=== PATIENT | female | born 1990 | race African-American/Black ===

== ENCOUNTER 2016-12-27 13:32 | Emergency (ER) | payer OTHER ==
[~2016-12-27] VITALS: Ht 160 cm; Wt 88.9 kg
[~2016-12-27 13:32] MED LIST: CYCLOBENZAPRINE10 MG ORAL; IBUPROFEN600 MG ORAL; NKM; NORCO 5-325 TA1 EACH ORAL; ZOFRAN ODT4 MG ORAL
[2016-12-27 14:09] VITALS: BP 109/74
[2016-12-27] MEDS ORDERED: Morphine Sulfate 4mg/ml Inj IVP ONE ×2 (14:30→18:30)
[2016-12-27 15:44] LABS: BASOPHILS % (AUTO) 1.4 % (0.0-2.0); EOSINOPHILS % (AUTO) 1.2 % (0.0-3.0); LYMPHOCYTES % (AUTO) 35.3 % (20.0-45.0); MEAN CORPUSCULAR HEMOGLOBIN 31.6 PG (27.0-31.0); MEAN CORPUSCULAR HGB CONC 35.3 G/DL (32.0-36.0); MEAN CORPUSCULAR VOLUME 89 FL (80-99); MEAN PLATELET VOLUME 6.2 FL (6.5-10.1); MONOCYTES % (AUTO) 4.4 % (1.0-10.0); NEUTROPHILS % (AUTO) 57.7 % (45.0-75.0); PLATELET COUNT 243 K/UL (150-450); RED BLOOD COUNT 4.34 M/UL (4.20-5.40); RED CELL DISTRIBUTION WIDTH 11.9 % (11.6-14.8); WHITE BLOOD COUNT 7.4 K/UL (4.8-10.8)
[2016-12-27 15:56] LABS: ALANINE AMINOTRANSFERASE 24 U/L (3-33); ALBUMIN/GLOBULIN RATIO 1.2 (1.0-2.7); ANION GAP 15 (5-15); ASPARTATE AMINO TRANSFERASE 19 U/L (5-40); CARBON DIOXIDE 25 mEQ/L (20-30); CHLORIDE 97 mEQ/L (98-107); CREATININE 0.6 mg/dL (0.5-0.9); GLOMERULAR FILTRATION RATE > 60 mL/min (>60); HEMOLYSIS 16; LIPASE 22 U/L (< 60); SODIUM 137 mEQ/L (135-145); TOTAL PROTEIN 7.1 g/dL (6.6-8.7)
[2016-12-27 16:06] VITALS: BP 110/73
[2016-12-27 16:57] LABS: APPEARANCE,URINE CLEAR; KETONES,URINE NEGATIVE (NEGATIVE); LEUKOCYTE ESTERASE ,URINE 3+ (NEGATIVE); NITRITE,URINE NEGATIVE (NEGATIVE); PH,URINE 7 (4.5-8.0); PROTEIN,URINE 2+ (NEGATIVE); UROBILINOGEN,URINE NORMAL MG/DL (0.0-1.0)
[2016-12-27 17:10] LABS: BACTERIA,URINE FEW /HPF; SQUAMOUS EPITHELIAL CELL,UR FEW /LPF (NONE/OCC)
[2016-12-27] MEDS ORDERED: Ketorolac 30mg Inj IV ONE (17:30)
[2016-12-27] MEDS ORDERED: KEFLEX500 MG ORAL (18:30)
[2016-12-27] MEDS ORDERED: ACETAMINOPHEN-1 EAC1 ORAL (18:30)
[2016-12-27] MEDS ORDERED: CYCLOBENZAPRINE10 MG ORAL (18:30)
[2016-12-27 18:57] VITALS: BP 100/57
--- NOTE | 2016-12-27 22:53 | Emergency Room Report ---
History of Present Illness General Chief Complaint: Back Pain-No Injury Source: Patient Present Illness HPI 26-year-old female presents ED complaining of left-sided back pain x1 day. States pain started yesterday has gotten progressively worse. Cramping sensation in the left upper back, 10 out of 10. Nonradiating. No other aggravating relieving factors. Denies trauma. Denies dysuria or hematuria. Denies fevers chills. Denies nausea or vomiting. Denies any other associated symptoms Allergies: Coded Allergies: No Known Allergies (Verified Allergy, Unknown, 09/22/09) Patient History Past Medical History: none Past Surgical History: none Pertinent Family History: none Social History: Denies: alcohol use, drug use, smoking Last Menstrual Period: last week Now: No Immunizations: UTD Reviewed Nursing Documentation: PMH: Agreed, PSxH: Agreed Nursing Documentation-PMH Past Medical History: No Stated History Review of Systems All Other Systems: negative except mentioned in HPI Physical Exam Vital Signs Date Time Temp Pulse Resp B/P Pulse Ox O2 Delivery O2 Flow Rate FiO2 12/27/16 13:58 98.1 90 18 109/74 98 Room Air Sp02 EP Interpretation: reviewed, normal General Appearance: no apparent distress, alert, GCS 15, non-toxic Head: normocephalic Eyes: bilateral eye PERRL, bilateral eye normal inspection ENT: normal ENT inspection Neck: normal inspection Respiratory: chest non-tender, lungs clear, normal breath sounds, speaking full sentences Cardiovascular #1: regular rate, rhythm, no edema Gastrointestinal: normal bowel sounds, non tender, soft, non-distended, no guarding, no rebound Rectal: deferred Genitourinary: CVA tenderness (L) Musculoskeletal: back normal, gait/station normal, normal range of motion, non- tender Neurologic: alert, oriented x3, responsive, motor strength/tone normal, sensory intact, speech normal Psychiatric: normal inspection Skin: normal inspection Lymphatic: normal inspection Medical Decision Making Diagnostic Impression: Primary Impression: Pyelonephritis Additional Impression: Back sprain ER Course Hospital Course 26-year-old F presents to ED with L sided flank pain Differential diagnosis includes- pyelonephritis, kidney stone, back pain Clinical course Patient placed on stretcher. After initial history and physical I ordered labs , IV fluids, pain medications and CT scan Labs - no leukocytosis, electrolytes ok, LFTs normal, UA + bacteria, some blood CT scan shows no acute pathology No evidence of kidney stone. Likely pyelonephritis. On reassessment pain improved I feel this is a highly complex case requiring extensive working including EKG/ Rhythm strip, Xray/CT/US, Blood/urine lab work, repeat exams while in ED, and administration of strong opiates/narcotics for pain control, admission to hospital or close patient follow up. Diagnosis - pyelonephritis, back pain Stable and discharged to home with Rx Keflex, Tylenol #3, flexeril. Followup with PMD. Return to ED if symptoms recur or worsen Labs Test 12/27/16 15:00 12/27/16 15:30 White Blood Count 7.4 K/UL (4.8-10.8) Red Blood Count 4.34 M/UL (4.20-5.40) Hemoglobin 13.7 G/DL (12.0-16.0) Hematocrit 38.8 % (37.0-47.0) Mean Corpuscular Volume 89 FL (80-99) Mean Corpuscular Hemoglobin 31.6 PG (27.0-31.0) Mean Corpuscular Hemoglobin Concent 35.3 G/DL (32.0-36.0) Red Cell Distribution Width 11.9 % (11.6-14.8) Platelet Count 243 K/UL (150-450) Mean Platelet Volume 6.2 FL (6.5-10.1) Neutrophils (%) (Auto) 57.7 % (45.0-75.0) Lymphocytes (%) (Auto) 35.3 % (20.0-45.0) Monocytes (%) (Auto) 4.4 % (1.0-10.0) Eosinophils (%) (Auto) 1.2 % (0.0-3.0) Basophils (%) (Auto) 1.4 % (0.0-2.0) Sodium Level 137 mEQ/L (135-145) Potassium Level 4.0 mEQ/L (3.4-4.9) Chloride Level 97 mEQ/L (98-107) Carbon Dioxide Level 25 mEQ/L (20-30) Anion Gap 15 (5-15) Blood Urea Nitrogen 7 mg/dL (7-23) Creatinine 0.6 mg/dL (0.5-0.9) Estimat Glomerular Filtration Rate > 60 mL/min (>60) Glucose Level 84 mg/dL (74-106) Calcium Level 9.0 mg/dL (8.6-10.2) Total Bilirubin 0.5 mg/dL (0.0-1.2) Aspartate Amino Transf (AST/SGOT) 19 U/L (5-40) Alanine Aminotransferase (ALT/SGPT) 24 U/L (3-33) Alkaline Phosphatase 58 U/L (35-104) Total Protein 7.1 g/dL (6.6-8.7) Albumin 4.0 g/dL (3.5-5.2) Globulin 3.1 g/dL Albumin/Globulin Ratio 1.2 (1.0-2.7) Lipase 22 U/L (< 60) Urine Color Pale yellow Urine Appearance Clear Urine pH 7 (4.5-8.0) Urine Specific [place] 1.010 (1.005-1.035) Urine Protein 2+ (NEGATIVE) Urine Glucose (UA) Negative (NEGATIVE) Urine Ketones Negative (NEGATIVE) Urine Occult Blood 3+ (NEGATIVE) Urine Nitrite Negative (NEGATIVE) Urine Bilirubin Negative (NEGATIVE) Urine Urobilinogen Normal MG/DL (0.0-1.0) Urine Leukocyte Esterase 3+ (NEGATIVE) Urine RBC 10-15 /HPF (0 - 2) Urine WBC 5-10 /HPF (0 - 2) Urine Squamous Epithelial Cells Few /LPF (NONE/OCC) Urine Bacteria Few /HPF (NONE) Urine HCG, Qualitative Negative CT/MRI/US Diagnostic Results CT/MRI/US Diagnostic Results : Imaging Test Ordered: CT A/P Impression no acute process Last Vital Signs Date Time Temp Pulse Resp B/P Pulse Ox O2 Delivery O2 Flow Rate FiO2 12/27/16 18:57 98.0 72 18 100/57 99 Room Air Status: improved Disposition: HOME, SELF-CARE Condition: Stable Scripts Cyclobenzaprine Hcl* (FLEXERIL*) 10 Mg Tablet 10 MG ORAL TID Y for Muscle Spasm, #20 TAB Prov: ABIDA CARBAJAL M.D. 12/27/16 Cephalexin* (KEFLEX*) 500 Mg Capsule 500 MG ORAL Q6H, #28 CAP 0 Refills Prov: ABIDA CARBAJAL M.D. 12/27/16 Acetaminophen With Codeine (T#3) (TYLENOL #3 TAB*) Y Tab 1 TAB ORAL Q8H Y for For Pain, #20 TAB Prov: ABIDA CARBAJAL M.D. 12/27/16 Patient Instructions: Back Pain, Adult, Pyelonephritis, Adult ABIDA CARBAJAL M.D. Dec 27, 2016 22:53
--- NOTE | 2016-12-28 11:36 | Diagnostic Imaging Report ---
Indication: Left flank Technique: Spiral acquisitions obtained through the abdomen and pelvis. No oral or IV contrast utilized, per urinary stone protocol. Multiplanar reconstructions were generated. Total dose length product 87 mGycm. CTDIvol(s) 16 mGy. Dose reduction achieved using automated exposure control Comparison: None Findings: No renal or ureteral calculi demonstrated. No hydronephrosis nor hydroureter. The lack of IV contrast limits assessment of the renal parenchyma. No gross renal mass or cyst demonstrated. The appendix is normal. No evidence of diverticulosis or diverticulitis. No bowel distention or bowel wall thickening. No free or loculated intraperitoneal air or fluid. The liver, gallbladder, bile ducts, pancreas, spleen, adrenals are unremarkable. Numerous somewhat prominent lymph nodes are seen in the mesenteric root. No retroperitoneal mass or adenopathy demonstrated. There is an intrauterine device in good position. No pelvic mass or adenopathy. The included lung bases are clear. The bones are unremarkable. There is incidental finding of failure of fusion of posterior elements of L5-normal anatomic variant. Impression: Essentially unremarkable exam Intrauterine device Nonspecific prominence of mesenteric root lymph nodes This agrees with the preliminary interpretation provided overnight by Dr. Huerta The CT scanner at [facility] is accredited by the [employer] and the scans are performed using protocols designed to limit radiation exposure to as low as reasonably achievable to attain images of sufficient resolution adequate for diagnostic evaluation.
== END 2016-12-27 18:59 | disposition home or self-care (01) ==
LOC: EMR 15:13
DX: N12 Tubulo-interstitial nephritis, not specified as acute or chronic (principal); Z97.5 Presence of (intrauterine) contraceptive device; S29.012A Strain of muscle and tendon of back wall of thorax, initial encounter; X58.XXXA Exposure to other specified factors, initial encounter; Y93.9 Activity, unspecified; Y92.9 Unspecified place or not applicable
CPT/HCPCS: 36415; 74176; 80053; 81003; 81025; 83690; 85025; 96360; 96361; 96374; 96375; 99284; J1885; J2270; J7040